=== PATIENT | male | born 1995 | race African-American/Black ===

== ENCOUNTER 2016-05-25 21:34 | Inpatient (IN) ==
[2016-05-25] MEDS ORDERED: ONDANSETRON 4 MG/2 ML VIAL IV STA (21:43)
[2016-05-25] MEDS ORDERED: LACTATED RINGERS 1,000 ML IV STA (21:43)
[2016-05-25] MEDS ORDERED: DIPH/TET/ACEL PERT BOOSTER VACCINE 0.5 ML VIAL IM ONE ×2 (21:43→21:48)
[2016-05-25] MEDS ORDERED: ceFAZolin 1,000 MG VIAL ONE (21:48)
[2016-05-25] MEDS ORDERED: SODIUM CHLORIDE 0.9% 100 ML IV ONE (21:48)
[2016-05-25 21:52] LABS: Basophils % 0.3 % (0.0-0.8); Eosinophils % 0.5 % (0.00-10.9); Hematocrit 40.5 VOL% (42.0-52.0); Hemoglobin 13.4 GM/DL (14.0-18.0); Immature Granulocytes % 0.3 %; Immature Granulocytes Absolute 0.02 #; Lymphocytes % 33.3 % (21.2-54.2); Mean Corpuscular HGB Conc 33.1 GM/DL (32-36); Mean Corpuscular Hemoglobin 27 PG (27-34); Mean Corpuscular Volume 81.3 FL (87-102); Mean Platelet Volume 11.6 FL (9.6-12.0); Neutrophils % 49.6 % (38.7-73.9); Platelet Count 193 10*3/uL (130-400); Red Blood Count 4.98 10*6/uL (3.8-5.5); Red Cell Distribution Width 12.8 % (9.3-17.3)
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
[2016-05-25 22:05] LABS: INR 1.1; PT Patient Result 11.4 SECS; Partial Thromboplastin Time 26.9 SECS (0-40)
[2016-05-25 22:11] LABS: Albumin 4.2 G/DL (3.4-5.0); Bilirubin,Total 0.4 MG/DL (0.2-1.0); Osmolality,Calculated 281.1 MOS/KG (273-304); Potassium 3.5 MMOL/L (3.5-5.1); Total Protein 7.2 G/DL (6.4-8.3)
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
[2016-05-25 22:13] LABS: Lymphocytes 35 % (20-55); Nucleated Red Blood Cells 1 (0-5); Segmented Neutrophils 52 % (50-85); Total Cells Counted 100
[2016-05-25 22:14] LABS: Platelet Estimate Normal
[2016-05-25 22:17] LABS: Calcium 8.5 MG/DL (8.5-10.1)
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
[2016-05-25] MEDS ORDERED: ONDANSETRON 4 MG/2 ML VIAL ONE (22:31)
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
[2016-05-25] MEDS ORDERED: CLINDAMYCIN INJ 900 MG in PREMIX 1 EACH IV ONE (22:50)
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
[2016-05-25 23:20] LABS: Apearance,Urine CLEAR (Clear); Bilirubin,Urine Negative (Negative); Blood, Urine Negative (Negative); Glucose,Urine (UA) Negative (Negative); Ketones,Urine Negative (Negative); Mucus,Urine Occasional /LPF (Occasional); Nitrite,Urine Negative (Negative); Protein,Urine Negative; Urine Color Straw (Yellow); Urine Specific Gravity 1.015 (1.001-1.035); Urine Urobilinogen < 2.0 EU/DL (0.2-1.0); WBC,Urine 2 /HPF (0-6)
[2016-05-25 23:27] LABS: Barbiturates Screen,Urine Negative (Negative); Benzodiazepines Screen,Urine Positive (Negative); Cannabinoid Screen,Urine Positive (Negative); Opiate Screen,Urine Negative (Negative); Phencyclidine Screen,Urine Negative (Negative)
[2016-05-25] MEDS ORDERED: HYDROmorphone 2 MG/1 ML VIAL IV PRN (23:30)
[2016-05-25] MEDS ORDERED: ACETAMINOPHEN 325 MG TABLET PO PRN (23:30)
[2016-05-25] MEDS ORDERED: ONDANSETRON 4 MG/2 ML VIAL IV PRN (23:30)
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
[2016-05-26 00:01] LABS: Lactic Acid 1.5 MMOL/L (0.4-2.0)
[2016-05-26] MEDS: LACTATED RINGERS 1,000 ML IV SCH ×2 (00:04→09:48)
[2016-05-26] MEDS: KETOROLAC 30 MG/1 ML VIAL IV SCH ×5 (00:04→23:37)
[2016-05-26] MEDS: CLINDAMYCIN 300 MG CAPSULE PO SCH ×5 (00:04→23:36)
[2016-05-26 05:53] LABS: Basophils % 0.2 % (0.0-0.8); Eosinophils % 0.7 % (0.00-10.9); Hematocrit 35.9 VOL% (42.0-52.0); Hemoglobin 11.8 GM/DL (14.0-18.0); Lymphocytes # 1.6 10*3/uL (1.4-4.0); Lymphocytes % 35.4 % (21.2-54.2); Mean Corpuscular HGB Conc 32.9 GM/DL (32-36); Mean Corpuscular Hemoglobin 27 PG (27-34); Mean Corpuscular Volume 80.7 FL (87-102); Mean Platelet Volume 11.6 FL (9.6-12.0); Monocytes # 0.6 10*3/uL (0.11-0.8); Monocytes % 13.2 % (1.7-12.7); Neutrophils # 2.2 10*3/uL (1.4-7.4); Neutrophils % 50.5 % (38.7-73.9); Platelet Count 155 10*3/uL (130-400); Red Blood Count 4.45 10*6/uL (3.8-5.5); Red Cell Distribution Width 12.9 % (9.3-17.3); White Blood Count 4.4 10*3/uL (4.5-13.71)
[2016-05-26 06:30] LABS: Calcium 8.2 MG/DL (8.5-10.1); Osmolality,Calculated 287.6 MOS/KG (273-304)
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
[2016-05-26] MEDS: PANTOPRAZOLE 40 MG TABLET PO SCH (14:05)
[2016-05-26] MEDS ORDERED: ENOXAPARIN 40 MG/0.4 ML SYRINGE SUBCUT SCH (16:22)
[2016-05-27] MEDS: CLINDAMYCIN 300 MG CAPSULE PO SCH (05:31)
[2016-05-27] MEDS: KETOROLAC 30 MG/1 ML VIAL IV SCH (05:32)
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
[2016-05-27] MEDS: PANTOPRAZOLE 40 MG TABLET PO SCH (08:43)
[2016-05-27 09:38] VITALS: BP 127/57
== END 2016-05-27 09:30 | disposition home or self-care (01) | DRG 914 ==
LOC: EDBD → EDUNIT# → N.ED 21:34 → N.EDINP 22:19 → N.3E 22:49
PROVIDERS: ADMIT Surgery; ATTEND Surgery